=== PATIENT | male | born 1970 | race Two or more races ===

== ENCOUNTER 2018-07-16 00:43 | Emergency (ER) | payer SELFPAY ==
[2018-07-16 00:49] VITALS: TEMP 98.8
[2018-07-16 00:50] VITALS: BMI 26.6
[2018-07-16 01:13] VITALS: RESP 17
--- NOTE | 2018-07-16 03:59 | ED PDOC ---
HPI: Psych/Substance Abuse Time Seen by Provider: 07/16/18 01:21 Chief Complaint (Nursing): Altered Mental Status Chief Complaint (Provider): Altered Mental Status ED Caveat: Other (Under influence) History Per: EMS Additional Complaint(s): 42 years old male brought to ER by EMS for psychiatric evaluation. Patient is under influence. Unknown history due to patient's inability to answer questions. PMD: None provided Past Medical History Reviewed: Historical Data, Nursing Documentation, Vital Signs Vital Signs: Last Vital Signs Temp 98.8 F 07/16/18 00:58 Pulse 108 H 07/16/18 00:58 Resp 17 07/16/18 00:58 BP 108/64 07/16/18 00:58 Pulse Ox 97 07/16/18 00:58 - Medical History Other PMH: Unknown - Surgical History Other surgeries: Unknown - Family History Family History: States: Unknown Family Hx - Allergies Allergies/Adverse Reactions: Allergies Allergy/AdvReac Type Severity Reaction Status Date / Time Unobtainable Allergy Verified 07/16/18 01:13 Review of Systems Review Of Systems: ROS cannot be obtained secondary to pt's inabilty to answer questions. Physical Exam - Reviewed Nursing Documentation Reviewed: Yes Vital Signs Reviewed: Yes - Physical Exam Appears: Positive for: No Acute Distress (Disheveled. Falls asleep during questioning) Head Exam: Positive for: ATRAUMATIC, NORMOCEPHALIC Skin: Positive for: Normal Color, Warm, Dry Eye Exam: Positive for: Normal appearance, EOMI, PERRL Neck: Positive for: Normal, Painless ROM, Supple Cardiovascular/Chest: Positive for: Regular Rate, Rhythm. Negative for: Murmur Respiratory: Positive for: Normal Breath Sounds. Negative for: Respiratory Di stress Gastrointestinal/Abdominal: Positive for: Normal Exam, Soft. Negative for: Tenderness Extremity: Positive for: Normal ROM - ECG O2 Sat by Pulse Oximetry: 97 (RA) Pulse Ox Interpretation: Normal Medical Decision Making Medical Decision Making: Time: 0247 A/P: Likely drug or alcohol usage --Will monitor for sobriety 330 --Patient got up and changed his bed and clothes 600 --Patient is now awake, alert, steady gait --Patient was initially Kannan Bacon, was not able to tell us his name and --Stable for discharge ScribeAttestation: Documented byFlori Welch, acting as a scribe for Theo Albrecht MD. Provider ScribeAttestation: All medical record entries made by the Scribe were at my direction and personally dictated by me. I have reviewed the chart and agree that the record accurately reflects my personal performance of the history, physical exam, medical decision making, and the department course for this patient. I have also personally directed, reviewed, and agree with the discharge instructions and disposition. Disposition - Clinical Impression Clinical Impression: Alcohol abuse - Disposition Disposition: Routine/Home Disposition Time: 06:18 Condition: CRITICAL Instructions: Alcohol Use - When Is Drinking a Problem? Forms: Holla@Me ([place]e)
[2018-07-16 07:18] VITALS: BP 110/68; PULSE 78; O2SAT 99
== END 2018-07-16 07:17 | disposition home or self-care (01) ==
LOC: H.ER 00:43 → EDBD 00:43 → H.ER 07:17
DX: F10.10 Alcohol abuse, uncomplicated (principal)